=== PATIENT | female | born 1970 | race Caucasian/White ===

== ENCOUNTER 2018-04-18 02:42 | Emergency (ER) | payer OTHER ==
[2018-04-18] MEDS ORDERED: Sodium Chloride 0.9% 1,000 ML ONE (02:52)
[2018-04-18 02:55] VITALS: RESP 14; O2SAT 97
[2018-04-18] MEDS ORDERED: DiphenhydrAMINE 50 mg/ml Inj ONE ×2 (02:55→03:12)
[2018-04-18] MEDS ORDERED: Sodium Chloride 0.9% 1,000 ML IV ONE (03:01)
[2018-04-18] MEDS ORDERED: DiphenhydrAMINE 50 mg/ml Inj IVP STA ×2 (03:01→03:08)
[2018-04-18] MEDS ORDERED: Albuterol 0.083% Inhal Sol (2.5 mg/3 mL) UD ONE (03:06)
[2018-04-18] MEDS ORDERED: Albuterol 0.083% Inhal Sol (2.5 mg/3 mL) UD INH STA (03:08)
--- NOTE | 2018-04-18 03:12 | C.PDOC ---
History Of Present Illness 47 year old female presents to the ED for evaluation of swelling to the tongue, right side of the mouth, throat and a sensation her throat is closing. Patient states she ate lemon chicken prior to going to sleep. Patient thinks food might have cause her allergy. Patient denies fever, chills, SOB, rash, wheezing. Time Seen by Provider: 04/18/18 03:00 Chief Complaint (Nursing): Allergic Reaction History Per: Patient History/Exam Limitations: no limitations Onset/Duration Of Symptoms: Hrs Current Symptoms Are (Timing): Still Present Context: Food Possible Cause: Food Associated Symptoms: Swelling Home/EMS Treatment: None Recent travel outside of the [place]: No Additional History Per: Patient Past Medical History Reviewed: Historical Data, Nursing Documentation, Vital Signs Vital Signs: Last Vital Signs Temp 98.0 F 04/18/18 04:12 Pulse 86 04/18/18 04:12 Resp 14 04/18/18 04:12 BP 113/76 04/18/18 04:12 Pulse Ox 97 04/18/18 04:48 - Medical History PMH: Anxiety, Asthma Denies: Chronic Kidney Disease Surgical History: No Surg Hx Family History: States: Unknown Family Hx - Social History Hx Alcohol Use: No Hx Substance Use: No - Immunization History Hx Tetanus Toxoid Vaccination: No Hx Influenza Vaccination: No Hx Pneumococcal Vaccination: No Review Of Systems Constitutional: Negative for: Fever, Chills ENT: Positive for: Mouth Swelling, Throat Swelling Respiratory: Negative for: Cough, Shortness of Breath Gastrointestinal: Negative for: Nausea, Vomiting Skin: Negative for: Rash Neurological: Negative for: Weakness, Numbness Physical Exam - Physical Exam Appears: Non-toxic, No Acute Distress Skin: Normal Color, Warm, Dry, No Rash Head: Atraumatic, Normacephalic, No Swelling (facial) Eye(s): bilateral: Normal Inspection Oral Mucosa: Moist, Other (buccal mucosa right side swollen and erythematous ) Tongue: Swelling (right side), Erythema (right side), Other (papillae right side of tongue) Throat: Erythema, No Exudate, No Drooling Neck: Normal ROM, Supple, No Other (neck swelling) Chest: Symmetrical Cardiovascular: Rhythm Regular Respiratory: Normal Breath Sounds, No Rales, No Rhonchi, No Wheezing Extremity: Normal ROM, No Tenderness, No Swelling Neurological/Psych: Oriented x3, Normal Speech Gait: Steady ED Course And Treatment O2 Sat by Pulse Oximetry: 97 (ON RA) Pulse Ox Interpretation: Normal Progress Note: Plan: - Duoneb. - Benadryl 50 mg IVP. - Pepcid 20 mg IVP. - Solumedrol 125 mg IVP. - IV fluids Reevaluation Time: 04:47 Reassessment Condition: Improved (Pt remained stable in ED, swelling improved, pt states no longer feels tightness in throat.speech is now clear. VSS pt is stable for discharge) Disposition - Disposition Referrals: Lorenzo Newell MD [Staff Provider] - Disposition: HOME/ ROUTINE Disposition Time: 04:40 Condition: STABLE Additional Instructions: Continue meds as directed Use epi pen as needed Return to ER if swelling reccur, worsen, with difficulty breathing or worse Prescriptions: DiphenhydrAMINE [Benadryl] 50 mg PO Q6H #20 cap Epinephrine [Epipen] 0.3 mg IJ ONCE #1 auto.injct Famotidine [Pepcid] 20 mg PO DAILY #10 tab predniSONE [Prednisone] 40 mg PO DAILY #8 tab Instructions: Angioedema (DC) Forms: [facility] ([place]) - Clinical Impression Clinical Impression: Angioedema - PA / PRECISION ASSEMBLER / Resident Statement MD/DO has reviewed & agrees with the documentation as recorded. - Scribe Statement The provider has reviewed the documentation as recorded by the Scribe Juan Moya All medical record entries made by the Scribe were at my direction and personally dictated by me. I have reviewed the chart and agree that the record accurately reflects my personal performance of the history, physical exam, medical decision making, and the department course for this patient. I have also personally directed, reviewed, and agree with the discharge instructions and disposition.
[2018-04-18 04:13] VITALS: BP 113/76; PULSE 86; TEMP 98
== END 2018-04-18 04:59 | disposition home or self-care (01) ==
LOC: C.ER 02:42
DX: T78.3XXA Angioneurotic edema, initial encounter (principal)
CPT/HCPCS: 96361; 96374; 96375; 96376; 99284; J1200; J2930; J7030